=== PATIENT | male | born 1970 | race African-American/Black ===

== ENCOUNTER 2019-12-10 12:28 | Inpatient (IN) | payer OTHER ==
--- NOTE | 2019-12-10 12:50 | BHS.RME ---
Substance Use & Tx History - Substance Use History Alcohol Substance amount: 6 pack beers Frequency of use: Less than 3 times per week Substance route: Oral Date of Last Use: 12/10/19 Cocaine-Crack Substance amount: $50 Frequency of use: Daily Substance route: Smoking Date of Last Use: 12/09/19 Marijuana/Hashish Substance amount: $20 Frequency of use: Daily Substance route: Smoking Date of Last Use: 12/10/19 Nicotine Substance amount: 1 pack Frequency of use: Daily Substance route: Smoking Date of Last Use: 12/10/19 Physical/Psych/Mental Status - Behavior General Behavior: Increased activity (restlessness, agitation) Eye Contact: Normal - Cooperativeness Cooperativeness: Hostile - Thinking Thought Processes: Tight, Logical, Goal Directed - Physical Health Problems Is patient presently having any pain?: No Does patient presently have any injuries (include location): No Does patient currently have a fever: No Is patient : No CIWA Nausea/Vomitin-No Nausea/No Vomiting Muscle Tremors: None Anxiety: 3 Agitation: 4-Moderately Restless Paroxysmal Sweats: 1-Minimal Palms Moist Orientation: 0-Oriented Tacttile Disturbances: 0-None Auditory Disturbances: 0-None Visual Disturbances: 0-None Headache: 0-None Present (due to use earlier today) CIWA-Ar Total Score: 8
--- NOTE | 2019-12-10 14:25 | HP ---
CIWA Score Nausea/Vomitin-No Nausea/No Vomiting Muscle Tremors: 1-None Visible, but [place] Anxiety: 4-Mod. Anxious/Guarded Agitation: 4-Moderately Restless Paroxysmal Sweats: 1-Minimal Palms Moist Orientation: 0-Oriented Tacttile Disturbances: 0-None Auditory Disturbances: 0-None Visual Disturbances: 0-None Headache: 0-None Present (due to use earlier today) CIWA-Ar Total Score: 10 - Admission Criteria [facility] Guidelines: Admission for Medically Managed Detox: Requires at least one of the followin. CIWA greater than 12 2. Seizures within the past 24 hours 3. Delirium tremens within the past 24 hours 4. Hallucinations within the past 24 hours 5. Acute intervention needed for co occurring medical disorder 6. Acute intervention needed for co occurring psychiatric disorder 7. Severe withdrawal that cannot be handled at a lower level of care (continued vomiting, continued diarrhea, abnormal vital signs) requiring intravenous medication and/or fluids 8. Admitting History and Physical - Admission Chief Complaint: " I need help." History of Present Illness: 49 year old mald with history of alcohol dependence with withdrawal, cocaine use disorder, cannabis use disorder and nicotine dependence. Alcohol: 6 pack beers daily since age 15 and last used 12/10/19 Cocaine/Crack $50 daily, smoking since age 18 and last used 12/09/19 Marijuana: $20 DAILY, SMOKING SINCE AGE 15, LAST USED 12/10/19 Nicotine does not want patch or gum PMH: HIV Disease Psur Left Ing Hernia Psych: None Lives in [place] alone and no legal issues pending. CIWA=10 Urine Tox: THC, DEB Breathalyzer. Patient meets criteria for inpatient detox due to co-morbidity. History Source: Patient Limitations to Obtaining History: No Limitations - Past Medical History Infectious Disease: Yes: HIV - Past Surgical History Past Surgical History: Yes: Hernia Repair - Smoking History Smoking history: Current every day smoker Have you smoked in the past 12 months: Yes Aproximately how many cigarettes per day: 6 - Alcohol/Substance Use Hx Alcohol Use: Yes History of Substance Use: reports: Cocaine, Marijuana Admission ROS S - HPI Exam Limitations: No Limitations - Ebola screening Have you traveled outside of the country in the last 21 days: No Have you had contact with anyone from an Ebola affected area: No Have you been sick,other than usual withdrawal symptoms: No - Review of Systems Constitutional: Chills, Diaphoresis EENT: reports: No Symptoms Reported Respiratory: reports: No Symptoms reported Cardiac: reports: No Symptoms Reported GI: reports: No Symptoms Reported : reports: No Symptoms Reported Musculoskeletal: reports: No Symptoms Reported Integumentary: reports: No Symptoms Reported Neuro: reports: No Symptoms reported Endocrine: reports: No Symptoms Reported Hematology: reports: No Symptoms Reported Psychiatric: reports: Judgement Intact, Orientated x3, Agitated, Anxious Other Systems: Reviewed and Negative Patient History - Patient Medical History Hx Anemia: No Hx Chronic Obstructive Pulmonary Disease (COPD): No Hx Cancer: No Hx Cardiac Disorders: No Hx Congestive Heart Failure: No Hx Hypertension: No Hx Hypercholesterolemia: No Hx Pacemaker: No HX Cerebrovascular Accident: No Hx Seizures: No Hx Dementia: No Hx Diabetes: No Hx Gastrointestinal Disorders: No Hx Liver Disease: No Hx Genitourinary Disorders: No Hx Sexually Transmitted Disorders: No Hx Renal Disease (ESRD): No Hx Thyroid Disease: No Hx Human Immunodeficiency Virus (HIV): Yes Hx Hepatitis C: No Hx Depression: No Hx Suicide Attempt: No Hx Bipolar Disorder: No Hx Schizophrenia: No - Patient Surgical History Past Surgical History: Yes Other Surgical History: L ing Herniorrhaphy - PPD History Previous Implant?: Yes Documented Results: Negative w/o proof Implanted On Prior R Admission?: No PPD to be Administered?: Yes - Smoking Cessation Smoking history: Current every day smoker Have you smoked in the past 12 months: Yes Aproximately how many cigarettes per day: 6 Hx Chewing Tobacco Use: No Initiated information on smoking cessation: No - Substances abused Alcohol Substance route: Oral Frequency: Daily Amount used: 6 pack beers Age of first use: 15 Date of last use: 12/10/19 Crack Substance route: Smoking Frequency: Daily Amount used: $50 Age of first use: 18 Date of last use: 12/09/19 Marijuana/Hashish Substance route: Smoking Frequency: 3-6 times per week ($20) Amount used: $20 Age of first use: 15 Date of last use: 12/10/19 Admission Physical Exam BHS - Physical General Appearance: Yes: Mild Distress, Alcohol on Breath, Thin, Tremorous, Irritable, Sweating, Anxious HEENTM: Yes: EOMI, Hearing grossly Normal, Normal ENT Inspection, Normocephalic, Normal Voice, GRACE, Pharynx Normal, Tm's normal Respiratory: Yes: Chest Non-Tender, Lungs Clear, Normal Breath Sounds, No Respiratory Distress, No Accessory Muscle Use Neck: Yes: No masses,lesions,Nodules, Supple, Trachea in good position Breast: Yes: Within Normal Limits Cardiology: Yes: Regular Rhythm, Regular Rate, S1, S2 Abdominal: Yes: Normal Bowel Sounds, Non Tender, Soft Genitourinary: Yes: Within Normal Limits Back: Yes: Normal Inspection Musculoskeletal: Yes: full range of Motion, Gait Steady, Pelvis Stable Extremities: Yes: Normal Capillary Refill, Normal Inspection, Normal Range of Motion, Non-Tender Neurological: Yes: loin trimmer II-XII NML intact, Fully Oriented, Alert, Motor Strength 5/5, Normal Mood/Affect, Normal Response Integumentary: Yes: Normal Color, Dry, Warm Lymphatic: Yes: Within Normal Limits - Diagnostic (1) Alcohol dependence with withdrawal Current Visit: Yes Status: Acute (2) HIV disease Current Visit: Yes Status: Acute Cleared for Admission [facility] - Detox or Rehab [facility] Level of Care: Medically Managed Detox Regimen/Protocol: Librium, Not Applicable Claeared for Rehab Admission: No Screened but not Admitted - Documentation of Visit Screened but not Admitted: No Breathalyzer - Breathalyzer Breathalyzer: 0 Urine Drug Screen - Test Device Lot number: [id number] Expiration date: 01/26/21 - Control Is test valid?: Yes - Results Drug screen NEGATIVE: No Urine drug screen results: THC-Marijuana, DEB-Cocaine Inpatient Rehab Admission - Rehab Decision to Admit Inpatient rehab admission?: No
[2019-12-10] MEDS ORDERED: chlordiazePOXIDE HCL 25 MG CAPSULE PO PRN (14:32)
[2019-12-10] MEDS ORDERED: MAGNESIUM HYDROX 2400MG/30ML ORAL SUSPENSION 30 ML CUP PO PRN (14:32)
[2019-12-10] MEDS ORDERED: BISMUTH SUBSALICYLATE 262 MG/15 ML BTL PO PRN (14:32)
[2019-12-10] MEDS ORDERED: ACETAMINOPHEN 325 MG TABLET (FP) PO PRN ×2 (14:32)
[2019-12-10] MEDS ORDERED: MENTHOL/PHENOL 1 EACH UD MM PRN (14:32)
[2019-12-10] MEDS ORDERED: IBUPROFEN 400 MG TABLET (FP) PO PRN (14:32)
[2019-12-10] MEDS ORDERED: METHOCARBAMOL 500 MG TABLET PO PRN (14:32)
[2019-12-10] MEDS ORDERED: MAG HYDROX/AL HYDROX/SIMETH 30 ML UNIT-DOSE CUP PO PRN (14:32)
[2019-12-10] MEDS ORDERED: MAGNESIUM CITRATE 300 ML BOTTLE PO PRN (14:32)
[2019-12-10] MEDS ORDERED: ONDANSETRON *ODT* 4 MG TABLET SL ONE (14:32)
[2019-12-10 15:05] VITALS: BMI 24.6
[2019-12-10] MEDS: PRENATAL VITAMINS W/ FOLIC ACID TABLET (FP) PO SCH (15:53)
--- NOTE | 2019-12-10 15:56 | EKG ---
Test Reason : Blood Pressure : / mmHG Vent. Rate : 061 BPM Atrial Rate : 061 BPM P-R Int : 180 ms QRS Dur : 088 ms QT Int : 402 ms P-R-T Axes : 063 025 016 degrees QTc Int : 404 ms NORMAL SINUS RHYTHM NONSPECIFIC ST ABNORMALITY BORDERLINE CRITERIA FOR Confirmed by MD DENISSE, AUGUST ([id number]) on 12/10/2019 3:56:50 PM Referred By: Confirmed By:AUGUST SALCEDO MD
[2019-12-10 16:47] LABS: HEMATOCRIT 42.1 % (35.4-49); HEMOGLOBIN 14.1 GM/dL (11.7-16.9); MCH 34.4 pg (25.7-33.7); MCHC 33.6 g/dl (32.0-35.9); MEAN CELL VOLUME 102.3 fl (80-96); MEAN PLT VOLUME 10.4 fl (7.5-11.1); PLATELET COUNT 198 K/MM3 (134-434); RBC 4.11 M/mm3 (4.00-5.60); WHITE BLOOD COUNT 4.8 K/mm3 (4.0-10.0)
[2019-12-10 16:58] LABS: ALBUMIN 3.8 g/dl (3.4-5.0); BILIRUBIN,TOTAL 0.5 mg/dL (0.2-1); BLOOD UREA NITROGEN 18.4 mg/dL (7-18); CALCIUM 9.3 mg/dL (8.5-10.1); CREATININE 1.5 mg/dL (0.55-1.3); POTASSIUM 4.3 mmol/L (3.5-5.1); TOT PROT 7.6 g/dl (6.4-8.2)
[2019-12-10] MEDS: chlordiazePOXIDE HCL 25 MG CAPSULE PO SCH ×2 (17:28→22:54)
[2019-12-10] MEDS: hydrOXYzine PAMOATE 25 MG CAPSULE (FP) PO SCH ×2 (17:31→22:53)
[2019-12-10] MEDS ORDERED: THIAMINE HCL 100 MG TABLET (FP) PO SCH (22:00)
[2019-12-10] MEDS: MELATONIN 5 MG TABLETS PO SCH (22:53)
[2019-12-11] MEDS: hydrOXYzine PAMOATE 25 MG CAPSULE (FP) PO SCH ×6 (05:29→22:23)
[2019-12-11] MEDS: chlordiazePOXIDE HCL 25 MG CAPSULE PO SCH ×4 (05:29→22:24)
[2019-12-11] MEDS: PRENATAL VITAMINS W/ FOLIC ACID TABLET (FP) PO SCH (10:11)
--- NOTE | 2019-12-11 10:38 | PN ---
S CIWA - CIWA Score Nausea/Vomitin-No Nausea/No Vomiting Muscle Tremors: 3 Anxiety: 4-Mod. Anxious/Guarded Agitation: 4-Moderately Restless Paroxysmal Sweats: 1-Minimal Palms Moist Orientation: 0-Oriented Tacttile Disturbances: 0-None Auditory Disturbances: 0-None Visual Disturbances: 0-None Headache: 0-None Present CIWA-Ar Total Score: 12 BHS Progress Note (SOAP) Subjective: medication reconciliation: vitamin b1 100mg po daily folic acid 1 mg po daily discontinue parental vitamin begin multivitamin latanoprost 0.005% one drop each eye hs Mr Arredondo prefers own medication latanoprost retrieved from property sent to pharmacy dovato 1 tab po daily sent to pharmacy for verification lipitor 20 mg po hs thera 1 tab po daily medications from property to medical provider to pharmacy medication reconciliation completed 49 years old male admitted on 12/10/19 for alcohol withdrawal sx management agitative about delay hiv medications that he brought in for continuity of care call pharmacy speed up the process for patient satisfaction Objective: 12/11/19 11:41 Vital Signs - 24 hr 12/10/19 12/10/19 12/10/19 14:58 16:00 16:55 Temperature 98.1 F 98.2 F 97.1 F L Pulse Rate 82 68 65 Respiratory 20 18 16 Rate Blood Pressure 127/84 123/83 132/82 O2 Sat by Pulse 100 100 100 Oximetry (%) 12/10/19 12/11/19 12/11/19 21:21 06:17 08:57 Temperature 97.3 F L 97.3 F L 97.2 F L Pulse Rate 53 L 66 71 Respiratory 18 18 18 Rate Blood Pressure 130/78 125/78 109/75 O2 Sat by Pulse 100 100 100 Oximetry (%) Laboratory Tests 12/10/19 12/10/19 12/10/19 14:50 14:50 14:50 WBC 4.8 RBC 4.11 Hgb 14.1 Hct 42.1 MCV 102.3 H MCH 34.4 H MCHC 33.6 RDW 14.0 Plt Count 198 MPV 10.4 Sodium 139 Potassium 4.3 Chloride 104 Carbon Dioxide 28 Anion Gap 7 L BUN 18.4 H Creatinine 1.5 H Est GFR (CKD-EPI)AfAm 62.46 Est GFR (CKD-EPI)NonAf 53.89 Random Glucose 83 Calcium 9.3 Total Bilirubin 0.5 AST 19 ALT 24 Alkaline Phosphatase 89 Total Protein 7.6 Albumin 3.8 Syphilis Serology Non-reactive 12/11/19 11:42 covid pending Assessment: 12/11/19 11:42 alcohol withdrawal Plan: librium regiment
[2019-12-11] MEDS ORDERED: MULTIVITAMIN THERAPEUTIC PO SCH ×2 (10:45→22:00)
[2019-12-11] MEDS ORDERED: MULTIVITAMINS (DAILY MVI) TABLET (FP) PO SCH (10:45)
[2019-12-11] MEDS ORDERED: FOLIC ACID 1 MG TABLET (FP) PO SCH (10:45)
[2019-12-11] MEDS: PATIENT'S OWN MEDICATION (NON-FORMULARY) (Dolutegravir Sodium/Lamivudine [Dovato 50-300 Mg PO SCH (12:22)
[2019-12-11] MEDS: FOLIC ACID 1 MG TABLET (FP) PO SCH (12:22)
[2019-12-11] MEDS: THIAMINE HCL 100 MG TABLET (FP) PO SCH (12:23)
[2019-12-11] MEDS: MELATONIN 5 MG TABLETS PO SCH (22:22)
[2019-12-11] MEDS: PATIENT'S OWN MEDICATION (NON-FORMULARY) (Latanoprost 0.005% Eye Drops [Xalatan 0.005% Eye OU SCH (22:22)
[2019-12-11] MEDS: ATORVASTATIN CALCIUM 20 MG PO SCH (22:22)
[2019-12-12] MEDS: hydrOXYzine PAMOATE 25 MG CAPSULE (FP) PO SCH ×4 (06:16→14:21)
[2019-12-12] MEDS: chlordiazePOXIDE HCL 25 MG CAPSULE PO SCH ×3 (06:16→10:15)
[2019-12-12] MEDS: PATIENT'S OWN MEDICATION (NON-FORMULARY) (Dolutegravir Sodium/Lamivudine [Dovato 50-300 Mg PO SCH (10:12)
[2019-12-12] MEDS: FOLIC ACID 1 MG TABLET (FP) PO SCH (10:13)
--- NOTE | 2019-12-12 10:57 | PN ---
S CIWA - CIWA Score Nausea/Vomitin-Mild Nausea/No Vomiting Muscle Tremors: 1-None Visible, but [place] Anxiety: 1-Mildly Anxious Agitation: 1-Slight > Activity Paroxysmal Sweats: No Perspiration Orientation: 0-Oriented Tacttile Disturbances: 1-Very Mild Itch/Numbness Auditory Disturbances: 0-None Visual Disturbances: 1-Very Mild Sensitivity Headache: 1-Very Mild CIWA-Ar Total Score: 7 BHS Progress Note (SOAP) Subjective: 49 years old male admitted on 12/10/19 for alcohol withdrawal sx management treating with librium detox regiment feeling better today less tremor mild restlessness trouble to fall asleep last night prefers to resting in bed longer limited conversation with staff Objective: 12/12/19 11:00 Vital Signs - 24 hr 12/11/19 12/11/19 12/11/19 12:33 16:57 20:36 Temperature 97.3 F L 97.7 F 96.8 F L Pulse Rate 92 H 69 76 Respiratory 20 16 16 Rate Blood Pressure 114/71 126/85 127/82 O2 Sat by Pulse 100 Oximetry (%) 12/12/19 12/12/19 06:23 08:27 Temperature 97.6 F 98.1 F Pulse Rate 99 H 59 L Respiratory 16 18 Rate Blood Pressure 114/69 138/87 O2 Sat by Pulse 100 Oximetry (%) Laboratory Tests 12/10/19 12/10/19 12/10/19 14:50 14:50 14:50 WBC 4.8 RBC 4.11 Hgb 14.1 Hct 42.1 MCV 102.3 H MCH 34.4 H MCHC 33.6 RDW 14.0 Plt Count 198 MPV 10.4 Sodium 139 Potassium 4.3 Chloride 104 Carbon Dioxide 28 Anion Gap 7 L BUN 18.4 H Creatinine 1.5 H Est GFR (CKD-EPI)AfAm 62.46 Est GFR (CKD-EPI)NonAf 53.89 Random Glucose 83 Calcium 9.3 Total Bilirubin 0.5 AST 19 ALT 24 Alkaline Phosphatase 89 Total Protein 7.6 Albumin 3.8 Syphilis Serology Non-reactive COVID-19 ([facility]) 12/10/19 15:00 WBC RBC Hgb Hct MCV MCH MCHC RDW Plt Count MPV Sodium Potassium Chloride Carbon Dioxide Anion Gap BUN Creatinine Est GFR (CKD-EPI)AfAm Est GFR (CKD-EPI)NonAf Random Glucose Calcium Total Bilirubin AST ALT Alkaline Phosphatase Total Protein Albumin Syphilis Serology COVID-19 ([facility]) Not detected lab noted Assessment: 12/12/19 11:00 alcohol withdrawal Plan: librium regiment
[2019-12-12] MEDS: THIAMINE HCL 100 MG TABLET (FP) PO SCH (11:17)
[2019-12-12] MEDS ORDERED: hydrOXYzine PAMOATE 25 MG CAPSULE (FP) PO ONE (17:11)
--- NOTE | 2019-12-12 17:14 | PN ---
[facility] Progress Note Note: Patient reports anxiety Vital Signs Temperature 97.8 F 12/12/19 12:51 Pulse Rate 87 12/12/19 12:51 Respiratory Rate 18 12/12/19 12:51 Blood Pressure 119/72 12/12/19 12:51 O2 Sat by Pulse Oximetry (%) 99 12/12/19 12:51 Laboratory Last Values WBC 4.8 K/mm3 (4.0-10.0) 12/10/19 14:50 RBC 4.11 M/mm3 (4.00-5.60) 12/10/19 14:50 Hgb 14.1 GM/dL (11.7-16.9) 12/10/19 14:50 Hct 42.1 % (35.4-49) 12/10/19 14:50 MCV 102.3 fl (80-96) H 12/10/19 14:50 MCH 34.4 pg (25.7-33.7) H 12/10/19 14:50 MCHC 33.6 g/dl (32.0-35.9) 12/10/19 14:50 RDW 14.0 % (11.9-15.9) 12/10/19 14:50 Plt Count 198 K/MM3 (134-434) 12/10/19 14:50 MPV 10.4 fl (7.5-11.1) 12/10/19 14:50 Sodium 139 mmol/L (136-145) 12/10/19 14:50 Potassium 4.3 mmol/L (3.5-5.1) 12/10/19 14:50 Chloride 104 mmol/L (98-107) 12/10/19 14:50 Carbon Dioxide 28 mmol/L (21-32) 12/10/19 14:50 Anion Gap 7 MMOL/L (8-16) L 12/10/19 14:50 BUN 18.4 mg/dL (7-18) H 12/10/19 14:50 Creatinine 1.5 mg/dL (0.55-1.3) H 12/10/19 14:50 Est GFR (CKD-EPI)AfAm 62.46 12/10/19 14:50 Est GFR (CKD-EPI)NonAf 53.89 12/10/19 14:50 Random Glucose 83 mg/dL (74-106) 12/10/19 14:50 Calcium 9.3 mg/dL (8.5-10.1) 12/10/19 14:50 Total Bilirubin 0.5 mg/dL (0.2-1) 12/10/19 14:50 AST 19 U/L (15-37) 12/10/19 14:50 ALT 24 U/L (13-61) 12/10/19 14:50 Alkaline Phosphatase 89 U/L (45-117) 12/10/19 14:50 Total Protein 7.6 g/dl (6.4-8.2) 12/10/19 14:50 Albumin 3.8 g/dl (3.4-5.0) 12/10/19 14:50 Syphilis Serology Non-reactive (NONREACTIVE) 12/10/19 14:50 COVID-19 ([facility]) Not detected (Not Detected) 12/10/19 15:00 Action: Hydroxyyzine Pamoate ( Vistaril) 25mg tablet oral ordered
[2019-12-12] MEDS: chlordiazePOXIDE HCL 10 MG CAPSULE PO SCH ×2 (17:42→22:17)
[2019-12-12] MEDS: ATORVASTATIN CALCIUM 20 MG PO SCH (22:17)
[2019-12-12] MEDS: MELATONIN 5 MG TABLETS PO SCH (22:17)
[2019-12-12] MEDS: MULTIVITAMIN THERAPEUTIC PO SCH (22:18)
[2019-12-12] MEDS: PATIENT'S OWN MEDICATION (NON-FORMULARY) (Latanoprost 0.005% Eye Drops [Xalatan 0.005% Eye OU SCH (22:18)
[2019-12-13] MEDS ORDERED: chlordiazePOXIDE HCL 10 MG CAPSULE PO PRN
[2019-12-13] MEDS ORDERED: chlordiazePOXIDE HCL 10 MG CAPSULE PO SCH (05:00)
[2019-12-13] MEDS: chlordiazePOXIDE 5 MG CAPSULE PO SCH ×4 (05:49→22:26)
[2019-12-13] MEDS: FOLIC ACID 1 MG TABLET (FP) PO SCH (10:22)
[2019-12-13] MEDS: THIAMINE HCL 100 MG TABLET (FP) PO SCH (10:23)
[2019-12-13] MEDS: PATIENT'S OWN MEDICATION (NON-FORMULARY) (Dolutegravir Sodium/Lamivudine [Dovato 50-300 Mg PO SCH (10:23)
--- NOTE | 2019-12-13 12:19 | PN ---
[facility] CIWA - CIWA Score Nausea/Vomitin-No Nausea/No Vomiting Muscle Tremors: None Anxiety: 0-No Anxiety, at Ease Agitation: 1-Slight > Activity Paroxysmal Sweats: No Perspiration Orientation: 2-Disoriented Date<2 days Tacttile Disturbances: 0-None Auditory Disturbances: 0-None Visual Disturbances: 0-None Headache: 0-None Present CIWA-Ar Total Score: 3 BHS Progress Note (SOAP) Subjective: Doing well without significant complaints, asking to be discharged tomorrow Objective: 12/13/19 12:22 PE Gnl WDWN, in no distress MS: nl mentation Motor; moves all limbs well Coord: nl Gait: steady Home Medication List Medication Instructions Recorded Confirmed Type Atorvastatin Calcium [Lipitor] 20 mg PO HS 12/10/19 12/10/19 History Dolutegravir Sodium/Lamivudine 1 each PO DAILY 12/10/19 12/10/19 History [Dovato 50-300 mg Tablet] Folic Acid 1 mg PO DAILY 12/10/19 12/10/19 History Latanoprost 0.005% Eye Drops 1 drop OU HS 12/10/19 12/10/19 History [Xalatan 0.005% Eye Drops -] Multivitamin,Therapeutic [Thera] 1 tab PO DAILY 12/10/19 12/10/19 History Thiamine Mononitrate [Vitamin B-1] 100 mg PO DAILY 12/10/19 12/10/19 History hydrOXYzine PAMOATE [Vistaril -] 50 mg PO PRN PRN 12/10/19 12/10/19 History Active Medications Generic Name Dose Route Start Last Admin Trade Name Alana PRN Reason Stop Dose Admin Acetaminophen 650 mg 12/10/19 14:32 Tylenol - PO Q6H PRN PAIN LEVEL 4 - 6 Acetaminophen 650 mg 12/10/19 14:32 Tylenol - PO Q6H PRN FEVER Al Hydroxide/Mg Hydroxide 30 ml 12/10/19 14:32 Mylanta Oral Suspension - PO Q6H PRN DYSPEPSIA Bismuth Subsalicylate 30 ml 12/10/19 14:32 Pepto-Bismol Liquid - PO Q1H PRN DIARRHEA Chlordiazepoxide HCl 10 mg 12/13/19 00:00 Librium - PO 12/14/19 00:00 Q4H PRN WITHDRAWAL(CONT SUBST) Chlordiazepoxide HCl 5 mg 12/15/19 05:00 Librium - PO 12/15/19 05:01 ONCE@0500 ONE Chlordiazepoxide HCl 5 mg 12/14/19 05:00 Librium - PO 12/14/19 17:01 Q12H RADHA Chlordiazepoxide HCl 5 mg 12/13/19 05:00 12/13/19 10:22 Librium - PO 12/13/19 23:01 5 mg [id number] RADHA Administration Eucalyptus/Menthol/Phenol/Sorbitol 1 each 12/10/19 14:32 Cepastat Lozenge - MM 12/16/19 14:32 Q4H PRN SORE THROAT Folic Acid 1 mg 12/11/19 10:45 12/13/19 10:22 Folic Acid - PO 1 mg DAILY RADHA Administration Hydroxyzine Pamoate 25 mg 12/13/19 08:15 Vistaril - PO Q4H PRN FOR ITCHING Ibuprofen 400 mg 12/10/19 14:32 Motrin - PO Q6H PRN PAIN LEVEL 1 - 3 Magnesium Citrate 300 ml 12/10/19 14:32 Citroma - PO Q48H PRN CONSTIPATION Magnesium Hydroxide 30 ml 12/10/19 14:32 Milk Of Magnesia - PO PRN PRN CONSTIPATION Melatonin 5 mg 12/10/19 22:00 12/12/19 22:17 Melatonin PO 5 mg HS RADHA Administration Methocarbamol 500 mg 12/10/19 14:32 Robaxin - PO 12/16/19 14:32 Q6H PRN MUSCLE SPASMS Non-Formulary Medication 1 drop 12/11/19 22:00 12/12/19 22:18 Latanoprost 0.005% Eye Drops [Xalatan 0.005% Eye Drops -] OU 1 drop HS RADHA Administration Non-Formulary Medication 1 each 12/11/19 10:45 12/13/19 10:23 Dolutegravir Sodium/Lamivudine [Dovato 50-300 Mg Tablet] PO 1 each DAILY RDAHA Administration Non-Formulary Medication 20 mg 12/11/19 22:00 12/12/19 22:17 Atorvastatin Calcium [Lipitor] PO 20 mg HS RADHA Administration Non-Formulary Medication 1 tab 12/12/19 22:00 12/12/19 22:18 Multivitamin,Therapeutic [Thera] PO 1 tab HS RADHA Administration Thiamine HCl 100 mg 12/11/19 10:45 12/13/19 10:23 Vitamin B1 - PO 100 mg DAILY RADHA Administration Assessment: 12/13/19 12:19 49 year old mald with history of alcohol dependence with withdrawal, cocaine use disorder, cannabis use disorder and nicotine dependence. Alcohol: 6 pack beers daily since age 15 and last used 12/10/19 Cocaine/Crack $50 daily, smoking since age 18 and last used 12/09/19 Marijuana: $20 DAILY, SMOKING SINCE AGE 15, LAST USED 12/10/19 Nicotine does not want patch or gum PMH: HIV Disease Psur Left Ing Hernia Psych: None Lives in [place] alone and no legal issues pending. IMPRESSION: 1. Alcohol use disorder 2. Cocaine use disorder 3. Cannabis use disorder 4. Nicotine dependence 5. HIV Plan: 1. Librium detox, projected completion on 12/14, pt asking for early discharge on 12/13, as he is doing well clinically, will place order for d/c in am. He states that he will follow up in his outpatient program 2. continue Nicoderm patch
[2019-12-13] MEDS: hydrOXYzine PAMOATE 25 MG CAPSULE (FP) PO PRN (16:55)
[2019-12-13] MEDS: MELATONIN 5 MG TABLETS PO SCH (22:25)
[2019-12-13] MEDS: PATIENT'S OWN MEDICATION (NON-FORMULARY) (Latanoprost 0.005% Eye Drops [Xalatan 0.005% Eye OU SCH (22:25)
[2019-12-13] MEDS: ATORVASTATIN CALCIUM 20 MG PO SCH (22:25)
[2019-12-13] MEDS: MULTIVITAMIN THERAPEUTIC PO SCH (22:26)
[2019-12-14] MEDS ORDERED: chlordiazePOXIDE HCL 10 MG CAPSULE PO SCH (05:00)
[2019-12-14] MEDS ORDERED: chlordiazePOXIDE 5 MG CAPSULE PO SCH (05:00)
[2019-12-14] MEDS: hydrOXYzine PAMOATE 25 MG CAPSULE (FP) PO PRN (05:47)
[2019-12-14] MEDS ORDERED: MASKS NR ONE (06:58)
[2019-12-14 09:09] VITALS: BP 127/85; PULSE 88; TEMP 97.5
[2019-12-14] MEDS: PATIENT'S OWN MEDICATION (NON-FORMULARY) (Dolutegravir Sodium/Lamivudine [Dovato 50-300 Mg PO SCH (09:16)
[2019-12-14] MEDS: FOLIC ACID 1 MG TABLET (FP) PO SCH (09:16)
[2019-12-14] MEDS: THIAMINE HCL 100 MG TABLET (FP) PO SCH (09:18)
--- NOTE | 2019-12-14 14:37 | DS ---
[facility] Detox Discharge Summary Admission Date: 12/10/19 Discharge Date: 12/14/19 - History Present History: Alcohol Dependence, Cannabis Dependence, Cocaine Dependence Additional Comments: Pt is medically cleared and discharged today. Pt completed the detox protocol. Pt is encouraged to follow-up with an outpatient CD program and also to follow- up with his pmd which he verbalized understanding. Pt is AOX3, in no acute respiratory distress, Full ROM, and ambulatory. Pertinent Past History: h/o alcohol, cannabis, and cocaine use disorder. - Physical Exam Results Vital Signs: Vital Signs Temperature 97.5 F L 12/14/19 08:39 Pulse Rate 88 12/14/19 08:39 Respiratory Rate 18 12/14/19 08:39 Blood Pressure 127/85 12/14/19 08:39 O2 Sat by Pulse Oximetry (%) 100 12/14/19 05:57 Vital Signs 12/14/19 08:39 Temperature 97.5 F L Pulse Rate 88 Respiratory 18 Rate Blood Pressure 127/85 Laboratory Last Values WBC 4.8 K/mm3 (4.0-10.0) 12/10/19 14:50 RBC 4.11 M/mm3 (4.00-5.60) 12/10/19 14:50 Hgb 14.1 GM/dL (11.7-16.9) 12/10/19 14:50 Hct 42.1 % (35.4-49) 12/10/19 14:50 MCV 102.3 fl (80-96) H 12/10/19 14:50 MCH 34.4 pg (25.7-33.7) H 12/10/19 14:50 MCHC 33.6 g/dl (32.0-35.9) 12/10/19 14:50 RDW 14.0 % (11.9-15.9) 12/10/19 14:50 Plt Count 198 K/MM3 (134-434) 12/10/19 14:50 MPV 10.4 fl (7.5-11.1) 12/10/19 14:50 Sodium 139 mmol/L (136-145) 12/10/19 14:50 Potassium 4.3 mmol/L (3.5-5.1) 12/10/19 14:50 Chloride 104 mmol/L (98-107) 12/10/19 14:50 Carbon Dioxide 28 mmol/L (21-32) 12/10/19 14:50 Anion Gap 7 MMOL/L (8-16) L 12/10/19 14:50 BUN 18.4 mg/dL (7-18) H 12/10/19 14:50 Creatinine 1.5 mg/dL (0.55-1.3) H 12/10/19 14:50 Est GFR (CKD-EPI)AfAm 62.46 12/10/19 14:50 Est GFR (CKD-EPI)NonAf 53.89 12/10/19 14:50 Random Glucose 83 mg/dL (74-106) 12/10/19 14:50 Calcium 9.3 mg/dL (8.5-10.1) 12/10/19 14:50 Total Bilirubin 0.5 mg/dL (0.2-1) 12/10/19 14:50 AST 19 U/L (15-37) 12/10/19 14:50 ALT 24 U/L (13-61) 12/10/19 14:50 Alkaline Phosphatase 89 U/L (45-117) 12/10/19 14:50 Total Protein 7.6 g/dl (6.4-8.2) 12/10/19 14:50 Albumin 3.8 g/dl (3.4-5.0) 12/10/19 14:50 Syphilis Serology Non-reactive (NONREACTIVE) 12/10/19 14:50 COVID-19 ([facility]) Not detected (Not Detected) 12/10/19 15:00 Labs noted. Pertinent Admission Physical Exam Findings: withdrawal symptoms. - Treatment Hospital Course: Detox Protocol Followed, Detoxed Safely, Responded well, Discharged Condition Good - Medication Discharge Medications: Ambulatory Orders Atorvastatin Calcium [Lipitor] 20 mg PO HS 12/10/19 Dolutegravir Sodium/Lamivudine [Dovato 50-300 mg Tablet] 1 each PO DAILY 12/10/19 Folic Acid 1 mg PO DAILY 12/10/19 Latanoprost 0.005% Eye Drops [Xalatan 0.005% Eye Drops -] 1 drop OU HS 12/10/19 Multivitamin,Therapeutic [Thera] 1 tab PO DAILY 12/10/19 Thiamine Mononitrate [Vitamin B-1] 100 mg PO DAILY 12/10/19 hydrOXYzine PAMOATE [Vistaril -] 50 mg PO PRN PRN 12/10/19 - Diagnosis (1) Alcohol use disorder Status: Chronic (2) Alcohol dependence with withdrawal Status: Acute (3) HIV disease Status: Acute (4) Cannabis abuse Status: Chronic (5) Cocaine use disorder Status: Chronic - AMA Did Patient Leave Against Medical Advice: No
[2019-12-15] MEDS ORDERED: chlordiazePOXIDE HCL 10 MG CAPSULE PO ONE ×2 (05:00)
== END 2019-12-14 09:25 | disposition home or self-care (01) | DRG 774 ==
LOC: YASAS 12:28 → Y3N 14:55
PROVIDERS: ADMIT Allergy & Immunology; ATTEND Allergy & Immunology
PROC: HZ2ZZZZ Detoxification Services for Substance Abuse Treatment (ICD-10-PCS; principal; 2019-12-10)
DX: F10.230 Alcohol dependence with withdrawal, uncomplicated (principal); F14.20 Cocaine dependence, uncomplicated; F12.20 Cannabis dependence, uncomplicated; F17.210 Nicotine dependence, cigarettes, uncomplicated; B20 Human immunodeficiency virus [HIV] disease; Z98.890 Other specified postprocedural states
CPT/HCPCS: 36415; 80053; 85027; 86780; 93005; 93010; U0003

== ENCOUNTER 2020-03-16 10:07 | Inpatient (IN) | payer OTHER ==
--- NOTE | 2020-03-16 10:24 | BHS.RME ---
2019 N Coronavirus Screen - COVID-19 Screening Questions Dx of COVID-19 or had a positive test in the last 4 weeks?: No Contact with known/suspected COVID patient in last 14 days?: No Any of these symptoms or contact with someone who has?: None Traveled domestically/internationally in the last 14 days?: No Screen score: 0 Screen result: Further Evaluation Substance Use & Tx History - Substance Use History Alcohol Substance amount: 1/2 pint vodka + 4 beers 24 oz Frequency of use: Daily Substance route: Oral Date of Last Use: 03/16/20 (started age 15) Cocaine- Powder Substance amount: $50 Frequency of use: Daily Substance route: Smoking Date of Last Use: 03/14/20 (started age 18) Marijuana/Hashish Substance amount: $20 Frequency of use: Daily Substance route: Smoking Date of Last Use: 03/16/20 (started age 15) Nicotine Substance amount: 2 ciggs Frequency of use: Daily Substance route: Smoking Date of Last Use: 03/16/20 (started age 15) Physical/Psych/Mental Status - Behavior General Behavior: Increased activity (restlessness, agitation) Eye Contact: Normal - Cooperativeness Cooperativeness: Cooperative - Thinking Thought Processes: Tight, Logical, Goal Directed - Physical Health Problems Is patient presently having any pain?: No Does patient presently have any injuries (include location): No Does patient currently have a fever: No Is patient : No CIWA Nausea/Vomitin-Mild Nausea/No Vomiting Muscle Tremors: 2 Anxiety: 2 Agitation: 2 Paroxysmal Sweats: 2 Orientation: 0-Oriented Tacttile Disturbances: 0-None Auditory Disturbances: 0-None Visual Disturbances: 0-None Headache: 1-Very Mild (not yet in full withdrawals, had a beer this morning prior to coming about 3 hours ago.) CIWA-Ar Total Score: 10
[2020-03-16 10:35] VITALS: BMI 25.4
--- NOTE | 2020-03-16 10:53 | HP ---
CIWA Score Nausea/Vomitin-Mild Nausea/No Vomiting Muscle Tremors: 2 Anxiety: 2 Agitation: 2 Paroxysmal Sweats: 2 Orientation: 0-Oriented Tacttile Disturbances: 0-None Auditory Disturbances: 0-None Visual Disturbances: 0-None Headache: 1-Very Mild (not yet in full withdrawals, had a beer this morning prior to coming about 3 hours ago.) CIWA-Ar Total Score: 10 - Admission Criteria OASAS Guidelines: Admission for Medically Managed Detox: Requires at least one of the followin. CIWA greater than 12 2. Seizures within the past 24 hours 3. Delirium tremens within the past 24 hours 4. Hallucinations within the past 24 hours 5. Acute intervention needed for co occurring medical disorder 6. Acute intervention needed for co occurring psychiatric disorder 7. Severe withdrawal that cannot be handled at a lower level of care (continued vomiting, continued diarrhea, abnormal vital signs) requiring intravenous medication and/or fluids 8. Admitting History and Physical - Past Medical History Infectious Disease: Yes: HIV - Past Surgical History Past Surgical History: Yes: Hernia Repair - Smoking History Smoking history: Current every day smoker Have you smoked in the past 12 months: Yes Aproximately how many cigarettes per day: 6 - Alcohol/Substance Use Hx Alcohol Use: Yes History of Substance Use: reports: Cocaine, Marijuana Admission ROS [facility] Chief Complaint: " I need help to stop drinking. I relapsed because my outpatient CD program were not having any programs. After I left here 1 month later I started drinking again." Allergies/Adverse Reactions: Allergies Allergy/AdvReac Type Severity Reaction Status Date / Time No Known Allergies Allergy Verified 03/16/20 10:37 History of Present Illness: 50 year old male with history of alcohol dependence, cocaine use disorder, cannabis use disorder, and nicotine dependence, seeking detox. He was last here in 12/09-12/14/19 and completed detox and was to follow up with outpatient CD program. 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 Cocaine- Powder Substance amount: $50 Frequency of use: Daily Substance route: Smoking Date of Last Use: 03/14/20 (started age 18) Marijuana/Hashish Substance amount: $20 Frequency of use: Daily Substance route: Smoking Date of Last Use: 03/16/20 (started age 15) Nicotine Substance amount: 2 ciggs Frequency of use: Daily Substance route: Smoking Date of Last Use: 03/16/20 (started age 15) PMH: HIV disease now undetectable viral load, HLD Psurg: Left Ing Hernia repair Psych: None Lives in [place] alone in supportive housing. He has no legal issues pending. Urine Tox: DEB, THC, CIWA=10 mitigated due to having drank 1 beer prior to coming in. SUNNY=0.000 Patient meets criteria as he has complicating medical problems and has poor recovery environment because he states his area is drug infested as his building has many substance users. Exam Limitations: No Limitations - Ebola screening Have you traveled outside of the country in the last 21 days: No Have you had contact with anyone from an Ebola affected area: No Have you been sick,other than usual withdrawal symptoms: No Do you have a fever: No - Review of Systems Constitutional: Chills EENT: reports: No Symptoms Reported Respiratory: reports: No Symptoms reported Cardiac: reports: No Symptoms Reported GI: reports: No Symptoms Reported : reports: No Symptoms Reported Musculoskeletal: reports: No Symptoms Reported Integumentary: reports: No Symptoms Reported Neuro: reports: Tremors Endocrine: reports: No Symptoms Reported Hematology: reports: No Symptoms Reported Psychiatric: reports: Judgement Intact, Mood/Affect Appropiate, Orientated x3, Anxious Other Systems: Reviewed and Negative Patient History - Patient Medical History Hx Anemia: No Hx Asthma: No Hx Chronic Obstructive Pulmonary Disease (COPD): No Hx Cancer: No Hx Cardiac Disorders: Yes (High cholesterol) Hx Congestive Heart Failure: No Hx Hypertension: No Hx Hypercholesterolemia: No Hx Pacemaker: No HX Cerebrovascular Accident: No Hx Seizures: No Hx Dementia: No Hx Diabetes: No Hx Gastrointestinal Disorders: No Hx Liver Disease: No Hx Genitourinary Disorders: No Hx Sexually Transmitted Disorders: Yes (HIV+) Hx Renal Disease (ESRD): No Hx Thyroid Disease: No Hx Human Immunodeficiency Virus (HIV): Yes Hx Hepatitis C: No Hx Depression: No Hx Suicide Attempt: No Hx Bipolar Disorder: No Hx Schizophrenia: No - Patient Surgical History Past Surgical History: Yes Hx Neurologic Surgery: No Hx Cataract Extraction: No Hx Cardiac Surgery: No Hx Lung Surgery: No Hx Breast Surgery: No Hx Breast Biopsy: No Hx Abdominal Surgery: No Hx Appendectomy: No Hx Cholecystectomy: No Hx Genitourinary Surgery: No Hx Section: No Hx Orthopedic Surgery: No Other Surgical History: L ing Herniorrhaphy Anesthesia Reaction: No - PPD History Previous Implant?: Yes Documented Results: Negative w/proof Implanted On Prior [facility] Admission?: Yes Date: 12/12/19 PPD to be Administered?: No - Smoking Cessation Smoking history: Current every day smoker Have you smoked in the past 12 months: Yes Aproximately how many cigarettes per day: 2 Cigars Per Day: 0 Hx Chewing Tobacco Use: No Initiated information on smoking cessation: Yes 'Breaking Loose' booklet given: 03/16/20 - Substances abused Alcohol Substance route: Oral Frequency: Daily Amount used: 1/2 pint + Beers Age of first use: 15 Date of last use: 03/16/20 (1 beer only this AM) Cocaine Substance route: Smoking Frequency: Daily Amount used: $50 Age of first use: 18 Date of last use: 03/14/20 Marijuana/Hashish Substance route: Smoking Frequency: Daily Amount used: $20 Age of first use: 15 Date of last use: 03/16/20 Admission Physical Exam BHS - Vital Signs Vital Signs: Vital Signs - 24 hr 03/16/20 10:33 Temperature 97.3 F L Pulse Rate 105 H Respiratory 12 Rate Blood Pressure 123/74 - Physical General Appearance: Yes: Mild Distress, Tremorous, Irritable, Anxious HEENTM: Yes: EOMI, Hearing grossly Normal, Normal ENT Inspection, Normocephalic, Normal Voice, GRACE, Pharynx Normal, Tm's normal Respiratory: Yes: Chest Non-Tender, Lungs Clear, Normal Breath Sounds, No Respiratory Distress, No Accessory Muscle Use Neck: Yes: No masses,lesions,Nodules, Supple, Trachea in good position Breast: Yes: Within Normal Limits Cardiology: Yes: Regular Rhythm, S1, S2, Tachycardia Abdominal: Yes: Normal Bowel Sounds, Non Tender, Flat, Soft Genitourinary: Yes: Within Normal Limits Back: Yes: Normal Inspection Musculoskeletal: Yes: full range of Motion, Gait Steady, Pelvis Stable Extremities: Yes: Normal Capillary Refill, Normal Inspection, Normal Range of Motion, Non-Tender Neurological: Yes: engineering vice president II-XII NML intact, Fully Oriented, Alert, Motor Strength 5/5, Normal Mood/Affect, Normal Response Integumentary: Yes: Normal Color, Warm Lymphatic: Yes: Within Normal Limits - Diagnostic (1) Hyperlipidemia Current Visit: Yes Status: Acute (2) Alcohol dependence with withdrawal Current Visit: Yes Status: Acute (3) HIV disease Current Visit: Yes Status: Acute (4) Cannabis abuse Current Visit: Yes Status: Chronic (5) Cocaine use disorder Current Visit: Yes Status: Chronic Cleared for Admission [facility] - Detox or Rehab [facility] Level of Care: Medically Managed Detox Regimen/Protocol: Librium Claeared for Rehab Admission: No Screened but not Admitted - Documentation of Visit Screened but not Admitted: No Breathalyzer - Breathalyzer Breathalyzer: 0 Vital Signs - Vital Signs Vital signs refused: No Temperature: 97.3 F Pulse Rate: 105 Respiratory Rate: 12 Blood Pressure: 123/74 BP Location: Right Arm Blood Pressure position: Sitting - Height Height: 5 ft 5 in - Weight Weight: 153 lb Weight measurement method: Standing scale - BMI Body Mass Index (BMI): 25.4 - Bowel Function Bowel Movement: No Urine Drug Screen - Test Device Lot number: [id number] Expiration date: 09/03/21 - Control Is test valid?: Yes - Results Drug screen NEGATIVE: No Urine drug screen results: THC-Marijuana, DEB-Cocaine Inpatient Rehab Admission - Rehab Decision to Admit Inpatient rehab admission?: No
[2020-03-16] MEDS ORDERED: MAGNESIUM HYDROX 2400MG/30ML ORAL SUSPENSION 30 ML CUP PO PRN (11:02)
[2020-03-16] MEDS ORDERED: chlordiazePOXIDE HCL 25 MG CAPSULE PO PRN (11:02)
[2020-03-16] MEDS ORDERED: ACETAMINOPHEN 325 MG TABLET (FP) PO PRN ×2 (11:02)
[2020-03-16] MEDS ORDERED: NICOTINE POLACRILEX 2 MG GUM BUC PRN (11:02)
[2020-03-16] MEDS ORDERED: BISMUTH SUBSALICYLATE 262 MG/15 ML BTL PO PRN (11:02)
[2020-03-16] MEDS ORDERED: ONDANSETRON *ODT* 4 MG TABLET SL PRN (11:02)
[2020-03-16] MEDS ORDERED: IBUPROFEN 400 MG TABLET (FP) PO PRN (11:02)
[2020-03-16] MEDS ORDERED: MAGNESIUM CITRATE 300 ML BOTTLE PO PRN (11:02)
[2020-03-16] MEDS ORDERED: MENTHOL/PHENOL 1 EACH UD MM PRN (11:02)
[2020-03-16] MEDS ORDERED: MAG HYDROX/AL HYDROX/SIMETH 30 ML UNIT-DOSE CUP PO PRN (11:02)
[2020-03-16] MEDS ORDERED: METHOCARBAMOL 500 MG TABLET PO PRN (11:02)
[2020-03-16] MEDS: chlordiazePOXIDE HCL 25 MG CAPSULE PO SCH ×3 (11:51→22:25)
[2020-03-16] MEDS: NICOTINE 7 MG/24 HOURS TOPICAL PATCH TD SCH (11:57)
[2020-03-16] MEDS: PRENATAL VITAMINS W/ FOLIC ACID TABLET (FP) PO SCH (12:01)
[2020-03-16] MEDS ORDERED: hydrOXYzine PAMOATE 25 MG CAPSULE (FP) PO SCH (14:00)
[2020-03-16 14:41] LABS: HEMATOCRIT 40.1 % (35.4-49); HEMOGLOBIN 13.6 GM/dL (11.7-16.9); MCH 34.3 pg (25.7-33.7); MEAN CELL VOLUME 100.9 fl (80-96); MEAN PLT VOLUME 10.2 fl (7.5-11.1); PLATELET COUNT 216 K/MM3 (134-434); POTASSIUM 3.8 mmol/L (3.5-5.1); RBC 3.98 M/mm3 (4.00-5.60); RDW 13.6 % (11.9-15.9); WHITE BLOOD COUNT 4.6 K/mm3 (4.0-10.0)
[2020-03-16 14:45] LABS: ALBUMIN 3.7 g/dl (3.4-5.0); BLOOD UREA NITROGEN 17.3 mg/dL (7-18)
[2020-03-16 14:47] LABS: CALCIUM 9.2 mg/dL (8.5-10.1)
[2020-03-16 14:48] LABS: CREATININE 1.4 mg/dL (0.55-1.3)
[2020-03-16 14:53] LABS: BILIRUBIN,TOTAL 0.8 mg/dL (0.2-1); TOT PROT 7.4 g/dl (6.4-8.2)
[2020-03-16] MEDS: ATORVASTATIN CA 20 MG TABLET (FP) PO SCH (22:24)
[2020-03-16] MEDS: MELATONIN 5 MG TABLETS PO SCH (22:25)
[2020-03-16] MEDS: THIAMINE HCL 100 MG TABLET (FP) PO SCH (22:25)
[2020-03-16] MEDS: LATANOPROST 0.005% OPHTH SOLN 2.5ML BOTTLE OU SCH (23:59)
[2020-03-17] MEDS: chlordiazePOXIDE HCL 25 MG CAPSULE PO SCH ×4 (06:06→22:35)
[2020-03-17] MEDS ORDERED: DOLUTEGRAVIR SODIUM 50 MG TABLET (NON-FORMULARY) PO SCH (08:00)
--- NOTE | 2020-03-17 09:58 | PN ---
[facility] CIWA - CIWA Score Nausea/Vomitin-No Nausea/No Vomiting Muscle Tremors: 2 Anxiety: 3 Agitation: 4-Moderately Restless Paroxysmal Sweats: 2 Orientation: 0-Oriented Tacttile Disturbances: 0-None Auditory Disturbances: 0-None Visual Disturbances: 0-None Headache: 0-None Present CIWA-Ar Total Score: 11 BHS Progress Note (SOAP) Subjective: restless agitation irritable interrupted sleep Objective: 03/17/20 09:57 Vital Signs Temperature 98.1 F 03/17/20 08:26 Pulse Rate 66 03/17/20 08:26 Respiratory Rate 18 03/17/20 08:26 Blood Pressure 129/83 03/17/20 08:26 O2 Sat by Pulse Oximetry (%) 98 03/17/20 08:26 Laboratory Tests 03/16/20 03/16/20 03/16/20 11:14 11:14 11:14 WBC 4.6 RBC 3.98 L Hgb 13.6 Hct 40.1 MCV 100.9 H MCH 34.3 H MCHC 34.0 RDW 13.6 Plt Count 216 MPV 10.2 Sodium 139 Potassium 3.8 Chloride 105 Carbon Dioxide 28 Anion Gap 6 L BUN 17.3 Creatinine 1.4 H Est GFR (CKD-EPI)AfAm 67.42 Est GFR (CKD-EPI)NonAf 58.17 Random Glucose 93 Calcium 9.2 Total Bilirubin 0.8 AST 20 ALT 28 Alkaline Phosphatase 84 Total Protein 7.4 Albumin 3.7 Syphilis Serology Non-reactive COVID-19 ([facility]) 03/16/20 11:30 WBC RBC Hgb Hct MCV MCH MCHC RDW Plt Count MPV Sodium Potassium Chloride Carbon Dioxide Anion Gap BUN Creatinine Est GFR (CKD-EPI)AfAm Est GFR (CKD-EPI)NonAf Random Glucose Calcium Total Bilirubin AST ALT Alkaline Phosphatase Total Protein Albumin Syphilis Serology COVID-19 ([facility]) Not detected labs noted aaox3 ambulating no acute distress Assessment: 03/17/20 09:58 withdrawals Plan: continue detox with modified librium as per pt request increase fluids
[2020-03-17] MEDS ORDERED: PATIENT'S OWN MEDICATION (NON-FORMULARY) (Dolutegravir Sodium/Lamivudine [Dovato 50-300 Mg PO SCH (10:00)
[2020-03-17] MEDS: PRENATAL VITAMINS W/ FOLIC ACID TABLET (FP) PO SCH (10:14)
[2020-03-17] MEDS: NICOTINE 7 MG/24 HOURS TOPICAL PATCH TD SCH (10:16)
[2020-03-17] MEDS: hydrOXYzine PAMOATE 25 MG CAPSULE (FP) PO PRN (12:35)
[2020-03-17] MEDS: ATORVASTATIN CA 20 MG TABLET (FP) PO SCH (22:34)
[2020-03-17] MEDS: THIAMINE HCL 100 MG TABLET (FP) PO SCH (22:35)
[2020-03-17] MEDS: MELATONIN 5 MG TABLETS PO SCH (22:35)
[2020-03-17] MEDS: LATANOPROST 0.005% OPHTH SOLN 2.5ML BOTTLE OU SCH (22:35)
[2020-03-18] MEDS ORDERED: chlordiazePOXIDE HCL 25 MG CAPSULE PO SCH (05:00)
[2020-03-18] MEDS: chlordiazePOXIDE 5 MG CAPSULE PO SCH ×4 (05:48→23:37)
[2020-03-18] MEDS: chlordiazePOXIDE HCL 25 MG CAPSULE PO SCH (06:28)
[2020-03-18] MEDS: DOLUTEGRAVIR SODIUM 50 MG TABLET (NON-FORMULARY) PO SCH (08:27)
[2020-03-18] MEDS: hydrOXYzine PAMOATE 25 MG CAPSULE (FP) PO PRN ×2 (10:21→17:44)
[2020-03-18] MEDS: NICOTINE 7 MG/24 HOURS TOPICAL PATCH TD SCH (10:22)
[2020-03-18] MEDS: PRENATAL VITAMINS W/ FOLIC ACID TABLET (FP) PO SCH (10:22)
--- NOTE | 2020-03-18 11:18 | PN ---
S CIWA - CIWA Score Nausea/Vomitin-No Nausea/No Vomiting Muscle Tremors: 2 Anxiety: 2 Agitation: 2 Paroxysmal Sweats: 2 Orientation: 0-Oriented Tacttile Disturbances: 0-None Auditory Disturbances: 0-None Visual Disturbances: 0-None Headache: 0-None Present CIWA-Ar Total Score: 8 BHS Progress Note (SOAP) Subjective: sweats restless I need by [place] eye drops given to me when I ask for it, not at night when I am asleep. Objective: 03/18/20 11:16 Vital Signs Temperature 96.9 F L 03/18/20 08:48 Pulse Rate 85 03/18/20 08:48 Respiratory Rate 20 03/18/20 08:48 Blood Pressure 122/61 03/18/20 08:48 O2 Sat by Pulse Oximetry (%) 98 03/18/20 08:48 Laboratory Tests 03/16/20 03/16/20 03/16/20 11:14 11:14 11:14 WBC 4.6 RBC 3.98 L Hgb 13.6 Hct 40.1 MCV 100.9 H MCH 34.3 H MCHC 34.0 RDW 13.6 Plt Count 216 MPV 10.2 Sodium 139 Potassium 3.8 Chloride 105 Carbon Dioxide 28 Anion Gap 6 L BUN 17.3 Creatinine 1.4 H Est GFR (CKD-EPI)AfAm 67.42 Est GFR (CKD-EPI)NonAf 58.17 Random Glucose 93 Calcium 9.2 Total Bilirubin 0.8 AST 20 ALT 28 Alkaline Phosphatase 84 Total Protein 7.4 Albumin 3.7 Syphilis Serology Non-reactive COVID-19 ([facility]) 03/16/20 11:30 WBC RBC Hgb Hct MCV MCH MCHC RDW Plt Count MPV Sodium Potassium Chloride Carbon Dioxide Anion Gap BUN Creatinine Est GFR (CKD-EPI)AfAm Est GFR (CKD-EPI)NonAf Random Glucose Calcium Total Bilirubin AST ALT Alkaline Phosphatase Total Protein Albumin Syphilis Serology COVID-19 ([facility]) Not detected labs noted aaox3 ambulating no acute distress Assessment: 03/18/20 11:17 withdrawals Plan: continue detox discussed with our pharmacist the possibility of ordering pt xalatan earlier than 10pm and if there are any contradiction. It was recommended that pt can get his xalatan earlier in the day and this order was placed in order notes: INSTIL ONE DROP IN EACH EYE. CAN GIVE LATE AT PATIENTS REQUEST. pt was made aware of change and printed pharmacy monograph for pt education provided to pt for any side effects he can be made aware.
[2020-03-18] MEDS: LATANOPROST 0.005% OPHTH SOLN 2.5ML BOTTLE OU SCH (12:25)
[2020-03-18] MEDS: MELATONIN 5 MG TABLETS PO SCH (23:36)
[2020-03-18] MEDS: THIAMINE HCL 100 MG TABLET (FP) PO SCH (23:36)
[2020-03-18] MEDS: ATORVASTATIN CA 20 MG TABLET (FP) PO SCH (23:41)
[2020-03-19] MEDS ORDERED: chlordiazePOXIDE HCL 10 MG CAPSULE PO PRN
[2020-03-19] MEDS: hydrOXYzine PAMOATE 25 MG CAPSULE (FP) PO PRN ×2 (05:53→17:04)
[2020-03-19] MEDS: chlordiazePOXIDE HCL 10 MG CAPSULE PO SCH ×3 (05:53→17:04)
[2020-03-19] MEDS: NICOTINE 7 MG/24 HOURS TOPICAL PATCH TD SCH (10:40)
[2020-03-19] MEDS: PRENATAL VITAMINS W/ FOLIC ACID TABLET (FP) PO SCH (10:41)
[2020-03-19] MEDS: DOLUTEGRAVIR SODIUM 50 MG TABLET (NON-FORMULARY) PO SCH (10:41)
[2020-03-19] MEDS: LATANOPROST 0.005% OPHTH SOLN 2.5ML BOTTLE OU SCH (10:43)
--- NOTE | 2020-03-19 12:02 | PN ---
[facility] CIWA - CIWA Score Nausea/Vomitin-No Nausea/No Vomiting Muscle Tremors: 1-None Visible, but [place] Anxiety: 1-Mildly Anxious Agitation: 0-Normal Activity Paroxysmal Sweats: No Perspiration Orientation: 0-Oriented Tacttile Disturbances: 0-None Auditory Disturbances: 0-None Visual Disturbances: 0-None Headache: 0-None Present CIWA-Ar Total Score: 2 BHS Progress Note (SOAP) Subjective: feeling fine little anxiety Objective: 03/19/20 12:01 Vital Signs Temperature 97.5 F L 03/19/20 08:27 Pulse Rate 88 03/19/20 08:27 Respiratory Rate 18 03/19/20 08:27 Blood Pressure 140/83 03/19/20 08:27 O2 Sat by Pulse Oximetry (%) 100 03/19/20 06:13 aaox3 ambulating no acute distress Assessment: 03/19/20 12:02 mild withdrawals Plan: continue detox d/c at 8am sharp
[2020-03-20] MEDS: ATORVASTATIN CA 20 MG TABLET (FP) PO SCH (00:14)
[2020-03-20] MEDS: chlordiazePOXIDE HCL 10 MG CAPSULE PO SCH (00:14)
[2020-03-20] MEDS: THIAMINE HCL 100 MG TABLET (FP) PO SCH (00:14)
[2020-03-20] MEDS: MELATONIN 5 MG TABLETS PO SCH (00:14)
[2020-03-20] MEDS ORDERED: chlordiazePOXIDE HCL 10 MG CAPSULE PO SCH (05:00)
[2020-03-20] MEDS ORDERED: chlordiazePOXIDE HCL 10 MG CAPSULE PO ONE (05:00)
[2020-03-20] MEDS: hydrOXYzine PAMOATE 25 MG CAPSULE (FP) PO PRN (06:05)
[2020-03-20 07:15] VITALS: BP 120/83; PULSE 83; TEMP 97.3
--- NOTE | 2020-03-20 08:50 | DS ---
[facility] Detox Discharge Summary Admission Date: 03/16/20 Discharge Date: 03/20/20 - History Present History: Alcohol Dependence, Cannabis Dependence, Cocaine Dependence - Physical Exam Results Vital Signs: Vital Signs Temperature 97.3 F L 03/20/20 05:55 Pulse Rate 83 03/20/20 05:55 Respiratory Rate 20 03/20/20 05:55 Blood Pressure 120/83 03/20/20 05:55 O2 Sat by Pulse Oximetry (%) 98 03/20/20 05:55 Pertinent Admission Physical Exam Findings: Vital Signs Temperature 97.3 F L 03/20/20 05:55 Pulse Rate 83 03/20/20 05:55 Respiratory Rate 20 03/20/20 05:55 Blood Pressure 120/83 03/20/20 05:55 O2 Sat by Pulse Oximetry (%) 98 03/20/20 05:55 Laboratory Tests 03/16/20 03/16/20 03/16/20 11:14 11:14 11:14 WBC 4.6 RBC 3.98 L Hgb 13.6 Hct 40.1 MCV 100.9 H MCH 34.3 H MCHC 34.0 RDW 13.6 Plt Count 216 MPV 10.2 Sodium 139 Potassium 3.8 Chloride 105 Carbon Dioxide 28 Anion Gap 6 L BUN 17.3 Creatinine 1.4 H Est GFR (CKD-EPI)AfAm 67.42 Est GFR (CKD-EPI)NonAf 58.17 Random Glucose 93 Calcium 9.2 Total Bilirubin 0.8 AST 20 ALT 28 Alkaline Phosphatase 84 Total Protein 7.4 Albumin 3.7 Syphilis Serology Non-reactive COVID-19 ([facility]) 03/16/20 11:30 WBC RBC Hgb Hct MCV MCH MCHC RDW Plt Count MPV Sodium Potassium Chloride Carbon Dioxide Anion Gap BUN Creatinine Est GFR (CKD-EPI)AfAm Est GFR (CKD-EPI)NonAf Random Glucose Calcium Total Bilirubin AST ALT Alkaline Phosphatase Total Protein Albumin Syphilis Serology COVID-19 ([facility]) Not detected labs noted aaox3 ambulating no acute distress lungs CTA - Treatment Hospital Course: Detox Protocol Followed, Detoxed Safely, Responded well, Discharged Condition Good, Rehab Referral Accepted - Medication Discharge Medications: Ambulatory Orders Atorvastatin Calcium [Lipitor] 20 mg PO HS 12/10/19 Dolutegravir Sodium/Lamivudine [Dovato 50-300 mg Tablet] 1 each PO DAILY 12/10/19 Folic Acid 1 mg PO DAILY 12/10/19 Latanoprost 0.005% Eye Drops [Xalatan 0.005% Eye Drops -] 1 drop OU HS 12/10/19 Multivitamin,Therapeutic [Thera] 1 tab PO DAILY 12/10/19 Thiamine Mononitrate [Vitamin B-1] 100 mg PO DAILY 12/10/19 hydrOXYzine PAMOATE [Vistaril -] 50 mg PO PRN PRN 12/10/19 - Diagnosis (1) Alcohol dependence with withdrawal Current Visit: Yes Status: Chronic Qualifiers: Complication of substance-induced condition: uncomplicated Qualified Code(s): F10.230 - Alcohol dependence with withdrawal, uncomplicated (2) HIV disease Current Visit: Yes Status: Acute (3) Hyperlipidemia Current Visit: Yes Status: Acute (4) Cannabis abuse Current Visit: Yes Status: Chronic (5) Cocaine use disorder Current Visit: Yes Status: Chronic - AMA Did Patient Leave Against Medical Advice: No
[2020-03-21] MEDS ORDERED: chlordiazePOXIDE HCL 10 MG CAPSULE PO ONE (05:00)
== END 2020-03-20 08:41 | disposition home or self-care (01) | DRG 774 ==
LOC: YASAS 10:07 → Y6N 11:20
PROVIDERS: ADMIT Allergy & Immunology; ATTEND Allergy & Immunology
PROC: HZ2ZZZZ Detoxification Services for Substance Abuse Treatment (ICD-10-PCS; principal; 2020-03-16)
DX: F10.230 Alcohol dependence with withdrawal, uncomplicated (principal); F14.20 Cocaine dependence, uncomplicated; F12.20 Cannabis dependence, uncomplicated; F17.210 Nicotine dependence, cigarettes, uncomplicated; Z21 Asymptomatic human immunodeficiency virus [HIV] infection status; E78.5 Hyperlipidemia, unspecified; Z98.890 Other specified postprocedural states
CPT/HCPCS: 36415; 80053; 85027; 86780; C9803; U0003

== ENCOUNTER 2022-07-19 10:21 | Inpatient (IN) | payer OTHER ==
[2022-07-19 10:37] VITALS: BMI 25.0
[2022-07-19] MEDS ORDERED: MAG HYDROX/AL HYDROX/SIMETH 30 ML UNIT-DOSE CUP PO PRN (12:14)
[2022-07-19] MEDS ORDERED: DICYCLOMINE HCL 10 MG CAPSULE PO PRN (12:14)
[2022-07-19] MEDS ORDERED: BISMUTH SUBSALICYLATE 524 MG/30 ML PO PRN (12:14)
[2022-07-19] MEDS ORDERED: NICOTINE 10 MG CARTRIDGE (INHALER) IH PRN (12:14)
[2022-07-19] MEDS ORDERED: MAGNESIUM HYDROX 2400MG/30ML ORAL SUSPENSION 30 ML CUP PO PRN (12:14)
[2022-07-19] MEDS ORDERED: ONDANSETRON *ODT* 4 MG TABLET SL PRN (12:14)
[2022-07-19] MEDS ORDERED: IBUPROFEN 600 MG TABLET (FP) PO PRN (12:14)
[2022-07-19] MEDS ORDERED: NICOTINE POLACRILEX 2 MG GUM BUC PRN (12:14)
[2022-07-19] MEDS ORDERED: hydrOXYzine PAMOATE 25 MG CAPSULE (FP) PO PRN (12:14)
[2022-07-19] MEDS ORDERED: NICOTINE 7 MG/24 HOURS TOPICAL PATCH TD PRN (12:14)
[2022-07-19] MEDS ORDERED: BENZOCAINE/MENTHOL (CHLORASEPTIC ) LOZENGE MM PRN (12:14)
[2022-07-19] MEDS ORDERED: POLYETHYLENE GLYCOL (HEALTHYLAX) 3350 17 GM PACKET PO PRN (12:14)
[2022-07-19] MEDS ORDERED: IBUPROFEN 400 MG TABLET (FP) PO PRN (12:14)
[2022-07-19] MEDS ORDERED: LOPERAMIDE HCL 2 MG CAPSULE PO PRN (12:14)
[2022-07-19] MEDS ORDERED: chlordiazePOXIDE HCL 25 MG CAPSULE PO PRN (12:14)
[2022-07-19] MEDS ORDERED: ACETAMINOPHEN 325 MG TABLET (FP) PO PRN ×2 (12:14)
[2022-07-19] MEDS: chlordiazePOXIDE HCL 25 MG CAPSULE PO SCH ×2 (17:29→22:17)
[2022-07-19] MEDS ORDERED: ATORVASTATIN CA 20 MG PO SCH (22:00)
[2022-07-19] MEDS: THIAMINE HCL 100 MG TABLET (FP) PO SCH (22:17)
[2022-07-19] MEDS: MELATONIN 5 MG TABLETS PO SCH (22:17)
[2022-07-20] MEDS: chlordiazePOXIDE HCL 25 MG CAPSULE PO SCH ×4 (05:37→22:40)
[2022-07-20] MEDS: PATIENT'S OWN MEDICATION (NON-FORMULARY) (Dolutegravir Sodium/Lamivudine [Dovato 50-300 Mg PO SCH (07:08)
[2022-07-20] MEDS ORDERED: DOLUTEGRAVIR SODIUM 50 MG TABLET (NON-FORMULARY) PO SCH (08:00)
[2022-07-20] MEDS ORDERED: PATIENT'S OWN MEDICATION (NON-FORMULARY) (Dolutegravir Sodium/Lamivudine [Dovato 50-300 Mg PO SCH (10:00)
[2022-07-20] MEDS: PRENATAL VITAMINS W/ FOLIC ACID TABLET (FP) PO SCH (10:06)
[2022-07-20 10:56] LABS: HEMATOCRIT 43.5 % (35.4-49); HEMOGLOBIN 14.6 GM/dL (11.7-16.9); MCH 34.6 pg (25.7-33.7); MCHC 33.6 g/dl (32.0-35.9); MEAN PLT VOLUME 9.6 fl (7.5-11.1); PLATELET COUNT 227 10^3/uL (134-434); RBC 4.22 M/mm3 (4.00-5.60); RDW 13.2 % (11.9-15.9); WHITE BLOOD COUNT 3.7 K/mm3 (4.0-10.0)
[2022-07-20 11:15] LABS: ALBUMIN 3.2 g/dl (3.4-5.0); CALCIUM 8.8 mg/dL (8.5-10.1)
[2022-07-20 11:16] LABS: BLOOD UREA NITROGEN 12.4 mg/dL (7-18)
[2022-07-20 11:19] LABS: CREATININE 1.4 mg/dL (0.55-1.3)
[2022-07-20 11:20] LABS: BILIRUBIN,TOTAL 0.3 mg/dL (0.2-1); TOT PROT 6.6 g/dl (6.4-8.2)
[2022-07-20] MEDS ORDERED: ATORVASTATIN CA 20 MG TABLET (FP) PO SCH ×2 (22:00)
[2022-07-20] MEDS: LATANOPROST 0.005% OPHTH SOLN 2.5ML BOTTLE OU SCH (22:38)
[2022-07-20] MEDS: ATORVASTATIN CA 20 MG PO SCH (22:39)
[2022-07-20] MEDS: MELATONIN 5 MG TABLETS PO SCH (22:39)
[2022-07-20] MEDS: THIAMINE HCL 100 MG TABLET (FP) PO SCH (22:39)
[2022-07-20] MEDS: METHOCARBAMOL 500 MG TABLET PO PRN (22:40)
[2022-07-21] MEDS ORDERED: chlordiazePOXIDE HCL 10 MG CAPSULE PO PRN
[2022-07-21] MEDS: chlordiazePOXIDE HCL 10 MG CAPSULE PO SCH ×4 (05:23→22:56)
[2022-07-21] MEDS: PATIENT'S OWN MEDICATION (NON-FORMULARY) (Dolutegravir Sodium/Lamivudine [Dovato 50-300 Mg PO SCH (08:02)
[2022-07-21] MEDS: PRENATAL VITAMINS W/ FOLIC ACID TABLET (FP) PO SCH (10:49)
[2022-07-21] MEDS: ATORVASTATIN CA 20 MG PO SCH (22:56)
[2022-07-21] MEDS: MELATONIN 5 MG TABLETS PO SCH (22:56)
[2022-07-21] MEDS: LATANOPROST 0.005% OPHTH SOLN 2.5ML BOTTLE OU SCH (22:56)
[2022-07-21] MEDS: THIAMINE HCL 100 MG TABLET (FP) PO SCH (22:56)
[2022-07-22] MEDS ORDERED: chlordiazePOXIDE HCL 10 MG CAPSULE PO SCH (05:00)
[2022-07-22 06:35] VITALS: BP 120/84; PULSE 75; RESP 16; TEMP 97.3
[2022-07-22] MEDS: PATIENT'S OWN MEDICATION (NON-FORMULARY) (Dolutegravir Sodium/Lamivudine [Dovato 50-300 Mg PO SCH (07:14)
[2022-07-22] MEDS: METHOCARBAMOL 500 MG TABLET PO PRN (08:37)
[2022-07-22] MEDS: PRENATAL VITAMINS W/ FOLIC ACID TABLET (FP) PO SCH (09:51)
[2022-07-23] MEDS ORDERED: chlordiazePOXIDE HCL 10 MG CAPSULE PO ONE (05:00)
== END 2022-07-22 08:43 | disposition home or self-care (01) | DRG 775 ==
LOC: YASAS 10:21 → Y3N 12:34
PROVIDERS: ADMIT Allergy & Immunology; ATTEND Surgery
PROC: HZ2ZZZZ Detoxification Services for Substance Abuse Treatment (ICD-10-PCS; principal; 2022-07-19)
DX: F10.230 Alcohol dependence with withdrawal, uncomplicated (principal); F12.20 Cannabis dependence, uncomplicated; F17.210 Nicotine dependence, cigarettes, uncomplicated; B20 Human immunodeficiency virus [HIV] disease; Z79.899 Other long term (current) drug therapy; E78.5 Hyperlipidemia, unspecified; H40.9 Unspecified glaucoma
CPT/HCPCS: 36415; 80053; 85027; 86780; 93005; 93010; C9803-CS; U0003; U0005